=== PATIENT | male | born 1970 | race Caucasian/White ===

== ENCOUNTER 2019-01-06 19:42 | Emergency (ER) | payer OTHER ==
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
[2019-01-06 19:51] VITALS: BP 132/89; PULSE 97; TEMP 98.7; BMI 29.5
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
== END 2019-01-06 20:15 | disposition home or self-care (01) ==
LOC: JERFT 19:42
DX: S16.1XXA Strain of muscle, fascia and tendon at neck level, initial encounter (principal); S39.012A Strain of muscle, fascia and tendon of lower back, initial encounter; V49.49XA Driver injured in collision with other motor vehicles in traffic accident, initial encounter; Y92.414 Local residential or business street as the place of occurrence of the external cause; Y93.89 Activity, other specified; Y99.8 Other external cause status
CPT/HCPCS: 99281-25